=== PATIENT | female | born 1960 | race Caucasian/White ===

== ENCOUNTER 2016-12-19 17:53 | Emergency (ER) | payer OTHER | END 2016-12-19 21:15 | disposition left against medical advice (07) | LOC: ER1 17:53 | DX: R07.9 Chest pain, unspecified (principal); N93.9 Abnormal uterine and vaginal bleeding, unspecified; R10.9 Unspecified abdominal pain; Z53.21 Procedure and treatment not carried out due to patient leaving prior to being seen by health care provider | CPT/HCPCS: 93005 ==

== ENCOUNTER 2020-09-26 02:27 | Emergency (ER) | payer MEDICARE, OTHER ==
[~2020-09-26 02:27] MED LIST: ALBUTEROL0.63 MG/3 INH; ANORO ELLIPTA1 EACH INH; AZITHROMYCIN250 MG PO; LEVAQUIN500 MG PO; LISINOPRIL20 MG PO; NEURONTIN600 MG PO; NICOTINE PATCH1 EAC2 TOP; OMEPRAZOLE20 MG PO; PHENERGAN 12.12.5 M1 PO; PREDNISONE50 MG PO; SYMBICORT 16010.2 GM INH; SYNTHROID25 MCG PO; TOPROL XL25 MG PO; TORADOL 10 MG T10 MG PO; TYLENOL W/CODEIN1 EA PO; VENTOLIN HFA 66.7 GM INH
[2020-09-26] MEDS ORDERED: VALACYCLOVIR1000 MG PO (03:14)
== END 2020-09-26 03:34 | disposition home or self-care (01) ==
LOC: ER1 02:27
DX: B02.9 Zoster without complications (principal); J44.9 Chronic obstructive pulmonary disease, unspecified; I10 Essential (primary) hypertension; E03.9 Hypothyroidism, unspecified; F17.210 Nicotine dependence, cigarettes, uncomplicated; Z90.49 Acquired absence of other specified parts of digestive tract
CPT/HCPCS: 94664; 99283

== ENCOUNTER 2021-03-03 17:03 | Emergency (ER) | payer MEDICARE, OTHER ==
[~2021-03-03 17:03] MED LIST changes: -SYMBICORT 16010.2 GM INH; +VALACYCLOVIR1000 MG PO
[2021-03-03 18:16] LABS: HEMOGLOBIN 14.4 gm/dl (12.3-15.3); RED BLOOD COUNT 4.81 M/UL (4.00-5.10); WHITE BLOOD COUNT 8.8 K/UL (4.5-11.0)
[2021-03-03 18:37] LABS: BUN/CREATININE RATIO 8 (0-10)
[2021-03-04 04:00] LABS: HEMOGLOBIN 14.6 gm/dl (12.3-15.3); RED BLOOD COUNT 4.83 M/UL (4.00-5.10); WHITE BLOOD COUNT 10.1 K/UL (4.5-11.0)
[2021-03-04 04:22] LABS: BUN/CREATININE RATIO 12 (0-10)
[2021-03-04] MEDS ORDERED: IBU800 MG PO (10:22)
[2021-03-04] MEDS ORDERED: CYCLOBENZAPRINE10 MG PO (10:25)
[2021-03-04] MEDS ORDERED: ACCOLATE20 MG PO (10:46)
[2021-03-04] MEDS ORDERED: NORVASC5 MG PO (10:46)
[2021-03-04] MEDS ORDERED: PEPCID20 MG PO (10:46)
[2021-03-04] MEDS ORDERED: LASIX20 MG PO (10:47)
[2021-03-04] MEDS ORDERED: TOPROL XL25 MG PO (10:47)
[2021-03-04] MEDS ORDERED: ANORO ELLIPTA1 EACH INH (16:46)
== END 2021-03-04 13:54 | disposition left against medical advice (07) ==
LOC: ER1 17:03 → CDU 21:55 → ER1 21:55
PROVIDERS: Internal Medicine; Physician Assistant Medical
DX: R55 Syncope and collapse (principal); R07.9 Chest pain, unspecified; R51.9 Headache, unspecified; I10 Essential (primary) hypertension; Z20.822 Contact with and (suspected) exposure to COVID-19
CPT/HCPCS: ECHO; 70450; 71045; 80048; 80053; 82550; 82553; 83874; 84484; 85025; 93005; 93306; 96374; 99285; J0360; U0002